=== PATIENT | male | born 1980 | race Caucasian/White ===

== ENCOUNTER 2016-05-07 17:02 | Emergency (ER) | payer MEDICAID ==
--- NOTE | 2016-05-07 17:14 | Emergency Department Record ---
History of Present Illness - General Chief complaint: Male Urogenital Problem Stated complaint: BLOOD IN URINE AND NECK PAIN Time Seen by Provider: 05/07/16 17:13 Source: Patient Mode of Arrival: Ambulatory Limitations: No limitations - History of Present Illness Initial comments: The patient is here due to a 4 day hx of L flank pain. The pain is stabbing and intermittent. He is having intermittent hematuria but no nausea, vomiting, or fevers. The patient has no hx of kidney stones. He did see a doctor at an 3 days ago and did do a CT which did demonstrate a problem with the L kidney. Additionally he has been having neck pain that radiates to his head off and on for 1 day. The onset of the pain was gradual. He denies any visual changes, fever, chills, nausea or vomiting. MD Complaint: Other Onset/Timin -: Days(s) Location: Left flank Radiation: None Severity: Moderate Severity scale (1-10): 8 Quality: Sharp Consistency: Constant Improves with: None Worsens with: None Reports: Blood in urine, Urinary retention - Related Data Sexually active: Yes Home Medications Medication Instructions Recorded Confirmed Last Taken RX: Ibuprofen [Motrin] 60 mg PO ASDIR 05/07/16 05/07/16 Unknown Tamsulosin HCl [Tamsulosin HCl] 0.4 mg PO QHS 05/07/16 05/07/16 Unknown Previous Rx's Medication Instructions Recorded Ciprofloxacin HCl [Cipro] 500 mg PO Q12HR #14 tablet 05/07/16 Hydrocodone/Acetaminophen [[place] 1 - 2 each PO .EVERY 4-6 HRS PRN 05/07/16 5-325 Tablet] #20 tablet Allergies Allergy/AdvReac Type Severity Reaction Status Date / Time No Known Drug Allergies Allergy Verified 08/06/15 07:27 Travel Screening - Travel/Exposure Within Last 30 Days Have you traveled within the last 30 days?: No Review of Systems Constitutional: Denies: Chills, Fever Eyes: Denies: Eye discharge ENT: Denies: Congestion Respiratory: Denies: Cough, Dyspnea Past Medical History - SOCIAL HISTORY Smoking Status: Current every day smoker Alcohol Use: Rare Drug Use: None - RESPIRATORY Hx Respiratory Disorders: Yes Hx Bronchitis: Yes Hx Pneumonia: Yes - CARDIOVASCULAR Hx Cardio Disorders: No - NEURO Hx Neuro Disorders: No - GI Hx GI Disorders: No - Hx Genitourinary Disorders: Yes Hx Kidney Stones: Yes - ENDOCRINE Hx Endocrine Disorders: No - MUSCULOSKELETAL Hx Musculoskeletal Disorders: Yes - PSYCH Hx Psych Problems: No - HEMATOLOGY/ONCOLOGY Hx Hematology/Oncology Disorders: No Family Medical History Any Significant Family History?: Yes Hx Cancer: Father *Cancer Comment: dad, uncle, grandfather-lung Ca Physical Exam - General General Appearance: Alert, Oriented x3, Cooperative, No acute distress - Head Head exam: Atraumatic, Normocephalic, Normal inspection - Eye Eye exam: Normal appearance, EOMI - ENT Throat exam: Normal inspection. negative: Tonsillar erythema, Tonsillar exudate - Neck Neck exam: Normal inspection, Full ROM (The patient has normal ROM but rotation of his head does bring on his neck pain.), Tenderness (Palpation of the bilateral posterior cervical muscles exactly reproduces his pain.). negative: Lymphadenopathy, Meningismus - Respiratory Respiratory exam: Normal lung sounds bilaterally. negative: Respiratory distress - Cardiovascular Cardiovascular Exam: Regular rate, Normal rhythm, Normal heart sounds - GI/Abdominal GI/Abdominal exam: Soft, Normal bowel sounds. negative: Tenderness - Extremities Extremities exam: Normal inspection, Full ROM, Normal capillary refill. negative: Tenderness Course Vital Signs 05/07/16 17:08 Temperature 97.7 F Pulse Rate 90 Respiratory 18 Rate Blood Pressure 137/86 Pulse Ox 97 - Reevaluation(s) Reevaluation #1: I did review the patient's CT from 05/04 and he does have a 23x18 mm stone stuck in the L renal pelvis. There also may be a very small 1-2 mm stone in the distal ureter but there is no hydro proximal to the distal stone. 05/07/16 17:34 Reevaluation #2: The patient is doing a lot better at this time. His repeat temp is 97.9 and he is ambulating normally. He has no pain at this time. I did explain the plan to him. We will consult with Dr. Del Castillo and have his see the patient next week in the specialty clinic. 05/07/16 18:13 Reevaluation #3: I did discuss the case with Dr. Del Castillo and he agrees with the plan and will see the patient in the Specialty Clinic next Wednesday. 05/07/16 18:22 Medical Decision Making - Data Complexity MDM Data: Labs Ordered and/or Reviewed - Lab Data Result diagrams: 05/07/16 17:40 05/07/16 17:40 Disposition Disposition: Discharge Clinical Impression: Calculus of Kidney Disposition: Home, Self-Care Condition: (1) Good Instructions: Kidney Stones (ED) Additional Instructions: Please drink plenty of fluids. Please take the Motrin or [place] for pain and see Dr. Del Castillo in the Specialty clinic next week as directed. Please return to the ER for any fever, increased pain or vomiting. Prescriptions: Ciprofloxacin HCl [Cipro] 500 mg PO Q12HR #14 tablet Hydrocodone/Acetaminophen [[place] 5-325 Tablet] 1 - 2 each PO .EVERY 4-6 HRS PRN #20 tablet PRN Reason: Pain Referrals: [facility] Specialty Clinics [Provider Group] Forms: Patient Portal Access Time of Disposition: 18:25
[2016-05-07] MEDS ORDERED: KETOROLAC 30 MG/ML VIAL IM ONE (17:22)
[2016-05-07 17:47] LABS: BASO % 0.2 % (0-6); EOS % 3.3 % (0-6); GRAN % 65.7 % (47-80); HEMATOCRIT 42.3 % (42.0-52.0); HEMOGLOBIN 14.5 gm/dl (14.0-18.0); LYMPH % 23.6 % (16-45); MEAN CORPUSCULAR HEMOGLOBIN 31.2 pg (27-33); MEAN CORPUSCULAR HGB CONC 34.3 g/dl (32-36); MEAN PLATELET VOLUME 9.3 fl (7.4-10.4); MONO % 7.2 % (0-9); PLATELET COUNT 299 K/uL (130-400); RED BLOOD COUNT 4.65 M/uL (4.40-5.70); RED CELL DISTRIBUTION WIDTH 13.4 % (11.5-14.5); URINE APPEARANCE CLEAR; URINE BILIRUBIN NEGATIVE (NEGATIVE); URINE BLOOD MODERATE (NEGATIVE); URINE COLOR YELLOW; URINE GLUCOSE (UA) NEGATIVE (NEGATIVE); URINE KETONE NEGATIVE (NEGATIVE); URINE LEUKOCYTE ESTERASE SMALL (NEGATIVE); URINE NITRITE NEGATIVE (NEGATIVE); URINE PROTEIN NEGATIVE (NEGATIVE); URINE UROBILINOGEN 0.2 E.U./dL (0.20 - 1.00); WHITE BLOOD COUNT W/O DIFF 8.9 K/uL (4.2-12.2)
[2016-05-07 17:57] LABS: ANION GAP 8.9 (7-16); BLOOD UREA NITROGEN 17 mg/dL (9-20); CARBON DIOXIDE 27.1 mmol/L (22-30); CREATININE 0.9 mg/dL (0.66-1.25); EST GLOMERULAR FILTRATION RATE > 60 ml/min; GLUCOSE,RANDOM 87 mg/dL (70-110)
[2016-05-07 18:07] LABS: URINE BACTERIA FEW; URINE RBC 21 - 35 (NONE SEEN)
[2016-05-07] MEDS ORDERED: CIPROFLOXACIN HCL 500 MG TABLET PO ONE (18:16)
== END 2016-05-07 18:37 | disposition home or self-care (01) ==
LOC: ER 17:02
DX: N20.0 Calculus of kidney (principal); R31.0 Gross hematuria; Z87.442 Personal history of urinary calculi
CPT/HCPCS: 99283; 96372; 99284; 85025; 80048; 81001; J1885

== ENCOUNTER 2016-06-10 05:27 | Emergency (ER) | payer MEDICAID ==
[2016-06-10] MEDS: ONDANSETRON HCL IV 4 MG/2 ML VIAL IV ONE (05:45)
[2016-06-10] MEDS: KETOROLAC 30 MG/ML VIAL IVP ONE (05:45)
[2016-06-10] MEDS: 0.9 % SODIUM CHLORIDE 1,000 ML BAG IV ONE ×2 (05:45→10:42)
[2016-06-10 05:51] LABS: BASO % 0.1 % (0-6); EOS % 0.6 % (0-6); GRAN % 71.9 % (47-80); HEMATOCRIT 42.6 % (42.0-52.0); HEMOGLOBIN 14.4 gm/dl (14.0-18.0); LYMPH % 19.5 % (16-45); MEAN CELL VOLUME 89.9 fl (81-97); MEAN CORPUSCULAR HEMOGLOBIN 30.4 pg (27-33); MEAN CORPUSCULAR HGB CONC 33.8 g/dl (32-36); MEAN PLATELET VOLUME 9.1 fl (7.4-10.4); MONO % 7.9 % (0-9); PLATELET COUNT 362 K/uL (130-400); RED BLOOD COUNT 4.74 M/uL (4.40-5.70); RED CELL DISTRIBUTION WIDTH 13.5 % (11.5-14.5); WHITE BLOOD COUNT W/O DIFF 9.3 K/uL (4.2-12.2)
[2016-06-10] MEDS: PROMETHAZINE HCL 25 MG/ML VIAL IVP ONE (05:51)
--- NOTE | 2016-06-10 05:51 | Emergency Department Record ---
History of Present Illness - General Source: Patient, Family Mode of Arrival: Ambulatory Limitations: No limitations - History of Present Illness Initial Comments: 36 yo male presents with right sided abdominal pain that started around midnight. The pain is sharp. He has some nausea. He was diagnosed with a LEFT sided large renal stone month ago. He had lithotripsy for that stone about 10 days ago. No fever. The pain woke him from his sleep. He reports his lithotripsy went well without difficulty at [facility] with Dr eDl Castillo. No PCP. He still has an appendix. MD Complaint: Abdominal pain Onset/Timin -: Hour(s) Location: RLQ Radiation: RLQ Migration to: R Flank Severity: Severe Quality: Sharp, Stabbing Consistency: Constant, Getting worse Improves With: Nothing Worsens With: Nothing Context: Other (Recent Left sided stone) Associated Symptoms: Nausea, Vomiting <SALTY ZAVALA - Last Filed: 06/10/16 06:40> <Italo Mcintosh - Last Filed: 06/10/16 10:39> - General Chief Complaint: Abdominal Pain Stated Complaint: ABDOMINAL PAIN Time Seen by Provider: 06/10/16 05:37 - Related Data Home Medications Medication Instructions Recorded Confirmed Last Taken Ibuprofen [Motrin] 60 mg PO ASDIR 05/07/16 06/10/16 Unknown Previous Rx's Medication Instructions Recorded Hydrocodone/Acetaminophen [[place] 1 - 2 each PO .EVERY 4-6 HRS PRN 05/07/16 5-325 Tablet] #20 tablet Allergies Allergy/AdvReac Type Severity Reaction Status Date / Time No Known Drug Allergies Allergy Verified 08/06/15 07:27 Travel Screening - Travel/Exposure Within Last 30 Days Have you traveled within the last 30 days?: No <SALTY ZAVALA - Last Filed: 06/10/16 06:40> Review of Systems Constitutional: Denies: Chills, Fever, Malaise, Weakness Eyes: Denies: Eye discharge ENT: Denies: Congestion, Throat pain Respiratory: Denies: Cough, Dyspnea, Hemoptysis, Stridor, Wheezes Cardiovascular: Denies: Chest pain, Palpitations, Syncope Endocrine: Denies: Fatigue Gastrointestinal: Reports: Abdominal pain, Nausea, Vomiting. Denies: Diarrhea, Hematemesis, Hematochezia, Melena Genitourinary: Denies: Dysuria, Frequency, Hematuria, Urgency Musculoskeletal: Denies: Arthralgia, Back pain, Myalgia, Neck pain Skin: Denies: Change in color, Rash Neurological: Denies: Headache, Numbness, Tingling Psychiatric: Denies: Anxiety Hematological/Lymphatic: Denies: Blood Clots, Easy bleeding, Easy bruising, Swollen glands <SALTY ZAVALA - Last Filed: 06/10/16 06:40> Past Medical History - SOCIAL HISTORY Smoking Status: Current every day smoker Alcohol Use: None Drug Use: None - RESPIRATORY Hx Respiratory Disorders: Yes Hx Bronchitis: Yes Hx Pneumonia: Yes - CARDIOVASCULAR Hx Cardio Disorders: No - NEURO Hx Neuro Disorders: No - GI Hx GI Disorders: No - Hx Genitourinary Disorders: Yes Hx Kidney Stones: Yes - ENDOCRINE Hx Endocrine Disorders: No - MUSCULOSKELETAL Hx Musculoskeletal Disorders: Yes - PSYCH Hx Psych Problems: No - HEMATOLOGY/ONCOLOGY Hx Hematology/Oncology Disorders: No <SALTY ZAVALA Last Filed: 06/10/16 06:40> Family Medical History Any Significant Family History?: Yes Hx Cancer: Father *Cancer Comment: dad, uncle, grandfather-lung Ca <SALTY ZAVALA - Last Filed: 06/10/16 06:40> Physical Exam - General General Appearance: Alert, Oriented x3, Cooperative, Anxious (anxious due to pain) Limitations: No limitations - Head Head exam: Normal inspection - Eye Eye exam: Normal appearance, PERRL. negative: Conjunctival injection, Periorbital swelling - ENT ENT exam: Normal exam Ear exam: Normal external inspection Nasal Exam: Normal inspection Mouth exam: Normal external inspection Teeth exam: Normal inspection - Neck Neck exam: Normal inspection, Full ROM. negative: Tenderness - Respiratory Respiratory exam: Normal lung sounds bilaterally. negative: Rhonchi, Stridor, Wheezes - Cardiovascular Cardiovascular Exam: Regular rate, Normal rhythm, Normal heart sounds - GI/Abdominal GI/Abdominal exam: Soft, Tenderness (tender right mid to lower abdomen, soft, non distended). negative: Distended, Guarding, Hernia, Mass, Rigid - Rectal Rectal exam: Deferred - exam: Deferred - Extremities Extremities exam: Normal inspection, Full ROM, Normal capillary refill. negative: Tenderness - Back Back exam: Reports: Normal inspection, Full ROM. Denies: Muscle spasm, Rash noted, Tenderness - Neurological Neurological exam: Alert, Normal gait, Oriented X3, Reflexes normal - Psychiatric Psychiatric exam: Normal affect, Normal mood - Skin Skin exam: Dry, Intact, Normal color, Warm <SALTY ZAVALA - Last Filed: 06/10/16 06:40> Course Vital Signs 06/10/16 05:31 Pulse Rate 57 L Respiratory 20 Rate Blood Pressure 115/77 Pulse Ox 97 - Reevaluation(s) Reevaluation #1: The EMR was reviewed. The patient had a 2.3cm left sided stone on 05/04/16 He is in significant pain with nausea and vomiting. His CT was reviewed on the PAX. He does appear to have right sided intrarenal stones on that CT. 06/10/16 05:53 Reevaluation #2: No acute changes of the CBC or CMP. 06/10/16 06:18 Reevaluation #3: The patient's pain and nausea are well controlled at this time He has not provided a UA at this point in time. He states he does not have the urge at this time. 06/10/16 06:37 [address] [facility] CT report was received. He has hydronephrosis on the right side due to the presence of an 8mm right pelviureteric junction calculus. Other bilateral non obstructing stone. 06/10/16 06:40 <SALTY ZAVALA - Last Filed: 06/10/16 06:40> Vital Signs 06/10/16 06/10/16 06/10/16 05:31 06:02 06:35 Temperature 97.4 F L Pulse Rate 57 L Pulse Rate [ 63 66 Pulse Ox Probe] Respiratory 20 18 16 Rate Blood Pressure 115/77 Blood Pressure 135/85 120/77 [Left Arm] Pulse Ox 97 98 99 06/10/16 07:45 Temperature Pulse Rate Pulse Rate [ 62 Pulse Ox Probe] Respiratory 18 Rate Blood Pressure Blood Pressure 124/76 [Left Arm] Pulse Ox 96 - Reevaluation(s) Reevaluation #1: The patient is doing well at this time. He denies any significant pain or discomfort. We are still waiting on a UA. 06/10/16 08:00 Reevaluation #2: The patient now states his pain is worse at this time. We will be giving him another dose of Dilaudid. 06/10/16 09:25 Reevaluation #3: The patient is doing well at this time. He is still having some pain but it is controlled. I did discuss the case with Dr. Del Castillo and due to the size of the stone and the position up high on the R he would like him transferred to the [facility] ED where he will see him and take him to surgery. I did also discuss the case with the ED attending Dr. Kauffman who did accept the patient in an ER to ER transfer. 06/10/16 10:28 06/10/16 10:38 <Italo Mcintosh - Last Filed: 06/10/16 10:39> Medical Decision Making - Lab Data Result diagrams: 06/10/16 05:40 06/10/16 05:40 <SALTY ZAVALA - Last Filed: 06/10/16 06:40> - Lab Data Result diagrams: 06/10/16 05:40 06/10/16 05:40 Lab Results 06/10/16 06/10/16 06/10/16 Range/Units 05:40 05:40 08:20 WBC 9.3 (4.2-12.2) K/uL RBC 4.74 (4.40-5.70) M/uL Hgb 14.4 (14.0-18.0) gm/dl Hct 42.6 (42.0-52.0) % MCV 89.9 (81-97) fl MCH 30.4 (27-33) pg MCHC 33.8 (32-36) g/dl RDW 13.5 (11.5-14.5) % Plt Count 362 (130-400) K/uL MPV 9.1 (7.4-10.4) fl Gran % 71.9 (47-80) % Lymphocytes % 19.5 (16-45) % Monocytes % 7.9 (0-9) % Eosinophils % 0.6 (0-6) % Basophils % 0.1 (0-6) % Sodium 142 (136-145) mmol/L Potassium 3.9 (3.5-5.1) mmol/L Chloride 107 (98-107) mmol/L Carbon Dioxide 23.4 (22-30) mmol/L Anion Gap 11.6 (7-16) BUN 15 (9-20) mg/dL Creatinine 1.1 (0.66-1.25) mg/dL Estimated GFR > 60 ml/min Random Glucose 131 H (70-110) mg/dL Calcium 9.4 (8.5-10.1) mg/dL Total Bilirubin 0.76 (0.2-1.3) mg/dL Direct Bilirubin 0.0 (0-0.3) mg/dL AST 19 (17-59) U/L ALT 38 (21-72) U/L Alkaline Phosphatase 82 (38-126) U/L Total Protein 7.3 (6.3-8.2) gm/dL Albumin 4.3 (3.5-5.0) gm/dL Amylase 81 (30-110) U/L Lipase 60 (23-300) U/L Urine Color Red H Urine Appearance Turbid H Urine pH 5.5 (5.0-8.0) Ur Specific [place] >= 1.030 (1.002-1.030) Urine Protein 100 mg/dl H (NEGATIVE) Urine Glucose (UA) Negative (NEGATIVE) Urine Ketones Negative (NEGATIVE) Urine Blood Large H (NEGATIVE) Urine Nitrite Negative (NEGATIVE) Urine Bilirubin Negative (NEGATIVE) Urine Urobilinogen 0.2 (0.20 - 1.00) E.U./dL Ur Leukocyte Esterase Negative (NEGATIVE) Urine RBC Too numerous to cnt (NONE SEEN) Urine WBC 3 - 5 (0-2/hpf) Ur Epithelial Cells 0 - 2 (FEW) Calcium Oxalate Crystal 1+ /hpf Urine Bacteria None seen <Italo Mcintosh - Last Filed: 06/10/16 10:39> Disposition <SALTY ZAVALA - Last Filed: 06/10/16 06:40> Disposition: Transfer Transfer To: [facility] Reason For Transfer: Urology Accepting Physician: Magdalene Time Discussed w/Accepting Physician: 10:30 Time of Disposition: 10:30 <Italo Mcintosh - Last Filed: 06/10/16 10:39> Clinical Impression: Renal calculus or stone Disposition: Acute Care Hospital Transfer Condition: (2) Stable Forms: Patient Portal Access
[2016-06-10] MEDS: HYDROMORPHONE HCL 1 MG/ML CPJ IVP ONE ×2 (05:55→08:57)
[2016-06-10 06:03] LABS: ALBUMIN 4.3 gm/dL (3.5-5.0); ALKALINE PHOSPHATASE 82 U/L (38-126); ALT/SGPT 38 U/L (21-72); AMYLASE 81 U/L (30-110); ANION GAP 11.6 (7-16); AST/SGOT 19 U/L (17-59); BILIRUBIN,TOTAL 0.76 mg/dL (0.2-1.3); BLOOD UREA NITROGEN 15 mg/dL (9-20); CARBON DIOXIDE 23.4 mmol/L (22-30); CREATININE 1.1 mg/dL (0.66-1.25); EST GLOMERULAR FILTRATION RATE > 60 ml/min; GLUCOSE,RANDOM 131 mg/dL (70-110); LIPASE 60 U/L (23-300); TOTAL PROTEIN 7.3 gm/dL (6.3-8.2)
[2016-06-10] MEDS: TAMSULOSIN HCL 0.4 MG CAP.ER.24H PO ONE (07:01)
[2016-06-10 08:46] LABS: URINE APPEARANCE TURBID; URINE BILIRUBIN NEGATIVE (NEGATIVE); URINE BLOOD LARGE (NEGATIVE); URINE COLOR RED; URINE GLUCOSE (UA) NEGATIVE (NEGATIVE); URINE KETONE NEGATIVE (NEGATIVE); URINE LEUKOCYTE ESTERASE NEGATIVE (NEGATIVE); URINE NITRITE NEGATIVE (NEGATIVE); URINE UROBILINOGEN 0.2 E.U./dL (0.20 - 1.00)
[2016-06-10 08:49] LABS: URINE BACTERIA NONE SEEN; URINE CALCIUM OXALATE CRYSTALS 1+ /hpf; URINE EPITHELIAL CELLS 0 - 2 (FEW)
== END 2016-06-10 11:31 | disposition short-term general hospital (02) ==
LOC: ER 05:27
DX: N13.2 Hydronephrosis with renal and ureteral calculous obstruction (principal); R10.31 Right lower quadrant pain; R11.2 Nausea with vomiting, unspecified; Z87.442 Personal history of urinary calculi
CPT/HCPCS: 99285 ×2; 96376; 96374; 96375; 96361; 82150; 83690; 85025; 80076; 80048; 81001; 74176; J1885; J2405; J1170; J2550; J7030